=== PATIENT | female | born 1945 | race Caucasian/White ===

== ENCOUNTER 2018-03-03 10:24 | Inpatient (IN) | payer OTHER ==
[2018-03-03 11:54] LABS: ADD MAN DIFF? NO
[2018-03-03 11:59] LABS: WHITE BLOOD COUNT 5.3 10^3/ul (4.8-10.8)
[2018-03-03 11:59] LABS: BASOPHILS % 0.8 % (0.0-2.0); EOSINOPHILS # 0.3 10^3/ul (0.0-0.5); EOSINOPHILS % 5.1 % (0.0-7.0); HEMATOCRIT 33.7 % (37.0-47.0); HEMOGLOBIN 11.1 g/dl (12.0-16.0); LYMPHOCYTES # 1.5 10^3/ul (0.8-2.9); LYMPHOCYTES % 27.6 % (15.0-51.0); MEAN CORPUSCULAR HEMOGLOBIN 30.1 pg (29.0-33.0); MEAN CORPUSCULAR HGB CONC 32.9 g/dl (32.0-37.0); MEAN CORPUSCULAR VOLUME 91.3 fl (82.0-101.0); MEAN PLATELET VOLUME 10.5 fl (7.4-10.4); MONOCYTE # 0.3 10^3/ul (0.3-0.9); MONOCYTES % 6.1 % (0.0-11.0); NEUTROPHIL # 3.2 10^3/ul (1.6-7.5); NEUTROPHILS % 60.2 % (39.0-77.0); PLATELET COUNT 241 10^3/UL (140-415); RED BLOOD COUNT 3.69 10^6/ul (4.20-5.40); RED CELL DISTRIBUTION WIDTH 12.2 % (11.5-14.5)
[2018-03-03 12:19] LABS: INR 0.95; PROTIME 12.8 Sec (11.9-14.9)
[2018-03-03 12:20] LABS: ALANINE AMINOTRANSFERASE 30 IU/L (13-69); ALBUMIN 4.1 g/dl (3.3-4.9); ALBUMIN/GLOBULIN RATIO 1.46; ALKALINE PHOSPHATASE 101 IU/L (42-121); ANION GAP 13 (8-16); ASPARTATE AMINO TRANSFERASE 35 IU/L (15-46); BILIRUBIN,INDIRECT 0.2 mg/dl (0-1.1); BILIRUBIN,TOTAL 0.2 mg/dl (0.2-1.3); BLOOD UREA NITROGEN 26 mg/dl (7-20); CALCIUM 9.9 mg/dl (8.4-10.2); CARBON DIOXIDE 24 mmol/L (21-31); CHLORIDE 110 mmol/L (97-110); GLUCOSE 109 mg/dl (70-220); PARTIAL THROMBOPLASTIN TIME 26.4 Sec (25.0-35.0); POTASSIUM 4.7 mmol/L (3.5-5.1); SODIUM 142 mmol/L (135-144); TOTAL PROTEIN 6.9 g/dl (6.1-8.1)
[2018-03-03] MEDS ORDERED: IODIXANOL LOCM 100 ML BTL (12:40)
[2018-03-03] MEDS ORDERED: LIDOCAINE 1% (MDV) 20 ML INJ (12:40)
[2018-03-03] MEDS ORDERED: NITROGLYCERIN (IC) 100 MCG/ML INJ (12:47)
[2018-03-03] MEDS ORDERED: HEPARIN 1000 UNITS/ML 10 ML INJ (12:47)
[2018-03-03] MEDS ORDERED: VERAPAMIL 5 MG INJ (12:47)
[2018-03-03] MEDS ORDERED: FENTAnyl 50 MCG/ML VIAL (12:50)
[2018-03-03] MEDS ORDERED: MIDAZOLAM 1 MG/ML 2 ML INJ (12:50)
[2018-03-03] MEDS: SOD CHLORIDE 0.9% 1,000 ML IV (13:47)
[2018-03-03] MEDS ORDERED: ONDANSETRON 4 MG INJ IV (14:00)
[2018-03-03] MEDS ORDERED: AL HYDROX/MG HYDROX/SIMETH 30 ML CUP PO (14:00)
[2018-03-03] MEDS: hydrALAzine 20 MG INJ IV ×2 (16:05→17:41)
[2018-03-03] MEDS ORDERED: ALPRAZOLAM 0.25 MG TAB PO (17:00)
[2018-03-03] MEDS ORDERED: hydrALAzine 20 MG INJ (17:05)
[2018-03-03] MEDS: AMLODIPINE 2.5 MG TAB PO ×2 (17:41→21:03)
[2018-03-03] MEDS ORDERED: GLUCOSE GEL 15 GRAM TUBE PO ×2 (18:00)
[2018-03-03] MEDS ORDERED: GLUCAGON 1 MG INJ IM (18:00)
[2018-03-03] MEDS ORDERED: DEXTROSE 50% 50 ML SYRINGE IV ×2 (18:00)
[2018-03-03] MEDS ORDERED: GLUCOSE GEL 15 GRAM TUBE BUCCAL (18:00)
[2018-03-03] MEDS: ATORVASTATIN 40 MG TAB PO (20:52)
[2018-03-03] MEDS: INSULIN ASPART [NOVOLOG] 3 ML PEN SC (21:02)
[2018-03-03] MEDS: METOPROLOL 25 MG TAB PO (21:04)
[2018-03-04] MEDS: ACCU-CHEK XX ×9 (02:49→23:08)
[2018-03-04] MEDS ORDERED: NITROGLYCERIN 50 MG/D5W 250 ML BTL (07:00)
[2018-03-04] MEDS ORDERED: AMINOCAPROIC ACID 5 GM INJ (07:00)
[2018-03-04] MEDS ORDERED: DOPamine-D5W 1.6 MG/ML 250 ML (07:00)
[2018-03-04] MEDS ORDERED: ALBUMIN HUMAN 25% 100 ML INJ (07:00)
[2018-03-04] MEDS ORDERED: NA BICARBONATE 8.4% 50 ML SYG ×2 (07:00→12:53)
[2018-03-04] MEDS ORDERED: LIDOCAINE 100 MG SYRINGE (07:00)
[2018-03-04] MEDS ORDERED: TRANEXAMIC ACID 1,000 MG/10 ML VIAL (07:00)
[2018-03-04 07:31] LABS: ADD MAN DIFF? NO
[2018-03-04 07:43] LABS: BASOPHIL # 0.1 10^3/ul (0.0-0.1); EOSINOPHILS # 0.4 10^3/ul (0.0-0.5); EOSINOPHILS % 5.6 % (0.0-7.0); HEMATOCRIT 37.4 % (37.0-47.0); HEMOGLOBIN 12.4 g/dl (12.0-16.0); LYMPHOCYTES # 1.6 10^3/ul (0.8-2.9); LYMPHOCYTES % 22.5 % (15.0-51.0); MEAN CORPUSCULAR HEMOGLOBIN 29.8 pg (29.0-33.0); MEAN CORPUSCULAR HGB CONC 33.2 g/dl (32.0-37.0); MEAN CORPUSCULAR VOLUME 89.9 fl (82.0-101.0); MEAN PLATELET VOLUME 10.5 fl (7.4-10.4); MONOCYTE # 0.4 10^3/ul (0.3-0.9); MONOCYTES % 5.4 % (0.0-11.0); NEUTROPHIL # 4.6 10^3/ul (1.6-7.5); NEUTROPHILS % 65.4 % (39.0-77.0); PLATELET COUNT 263 10^3/UL (140-415); RED BLOOD COUNT 4.16 10^6/ul (4.20-5.40); RED CELL DISTRIBUTION WIDTH 12.4 % (11.5-14.5)
[2018-03-04] MEDS ORDERED: MIDAZOLAM 5 ML ×2 (07:55)
[2018-03-04] MEDS ORDERED: ONDANSETRON 4 MG INJ IV (08:00)
[2018-03-04] MEDS ORDERED: MIDAZOLAM 1 MG/ML 2 ML INJ IV (08:00)
[2018-03-04] MEDS ORDERED: HYDROmorphONE 1 MG/5 ML IV SYRINGE IV ×3 (08:00)
[2018-03-04] MEDS ORDERED: MEPERIDINE 25 MG INJ IV (08:00)
[2018-03-04] MEDS ORDERED: hydrALAzine 20 MG INJ IV (08:00)
[2018-03-04] MEDS ORDERED: DIPHENHYDRAMINE 50 MG INJ IV (08:00)
[2018-03-04] MEDS ORDERED: LEVALBUTEROL (NEB) 1.25 MG/0.5 ML AMP HHN (08:00)
[2018-03-04] MEDS ORDERED: FENTAnyl 50 MCG/ML VIAL IV ×2 (08:00)
[2018-03-04] MEDS ORDERED: LORAZEPAM 2 MG INJ IV (08:00)
[2018-03-04] MEDS ORDERED: IPRATROPIUM (NEB) 0.5 MG/2.5 ML AMP HHN (08:00)
[2018-03-04] MEDS ORDERED: LABETALOL HCL 20MG INJ IV (08:00)
[2018-03-04 08:02] LABS: MAGNESIUM 1.7 mg/dl (1.7-2.5)
[2018-03-04 08:05] LABS: ANION GAP 13 (8-16); BLOOD UREA NITROGEN 20 mg/dl (7-20); CALCIUM 9.8 mg/dl (8.4-10.2); CARBON DIOXIDE 24 mmol/L (21-31); CHLORIDE 109 mmol/L (97-110); CREATININE 0.84 mg/dl (0.44-1.00); GLUCOSE 171 mg/dl (70-220); POTASSIUM 4.9 mmol/L (3.5-5.1); SODIUM 141 mmol/L (135-144)
[2018-03-04] MEDS: PAPAVERINE 60 MG INJ (08:55)
[2018-03-04] MEDS: HEPARIN 1000 UNITS/ML 10 ML INJ (08:55)
[2018-03-04] MEDS: VANCOMYCIN 1 GM INJ (08:55)
[2018-03-04] MEDS ORDERED: morphine 10 MG INJ (08:58)
[2018-03-04] MEDS: METOPROLOL 25 MG TAB PO ×2 (09:00→21:00)
[2018-03-04] MEDS: AMLODIPINE 2.5 MG TAB PO ×2 (09:00→21:00)
[2018-03-04] MEDS: ASPIRIN 81 MG TAB PO (09:00)
[2018-03-04] MEDS ORDERED: HEPARIN 1000 UNITS/ML 10 ML INJ ×3 (09:07→09:34)
[2018-03-04] MEDS ORDERED: PROTAMINE 250 MG INJ (09:32)
[2018-03-04] MEDS ORDERED: PROPOFOL 100 ML (09:48)
[2018-03-04] MEDS ORDERED: PROPOFOL 20 ML (09:48)
[2018-03-04] MEDS ORDERED: SUCCINYLCHOLINE CHLORIDE 100 MG/5 ML SYG IV (09:49)
[2018-03-04] MEDS ORDERED: LIDOCAINE 2% (SDV) 5 ML INJ (09:49)
[2018-03-04] MEDS ORDERED: ROCURONIUM 50 MG INJ (09:49)
[2018-03-04 10:10] LABS: IMMEDIATE SPIN CROSSMATCH 1 6
[2018-03-04] MEDS ORDERED: CA CHLORIDE 10% 10 ML SYRINGE (12:27)
[2018-03-04] MEDS: niCARdipine-NS 0.1MG/ML DRIP 200 ML IV (13:33)
[2018-03-04] MEDS: MILRINONE LACTATE 2 MG in SOD CHLORIDE 0.9% 50 ML IV (13:34)
[2018-03-04] MEDS: INSULIN HUMAN REGULAR 100 UNIT in SOD CHLORIDE 0.9% 99 ML IVPB (13:37)
[2018-03-04] MEDS: NORepinephrine 8MG/250 ML (PMX 250 ML IV (14:00)
[2018-03-04] MEDS: PHENYLephrine 20MG IN 250 ML 250 ML IV (14:00)
[2018-03-04] MEDS: HEPARIN (10000 UNITS/ML) 10,000 UNIT, MILRINONE LACTATE 10 MG in SOD CHLORIDE 0.9% 1,00... SC (14:00)
[2018-03-04 14:03] LABS: ADD MAN DIFF? NO
[2018-03-04 14:05] LABS: WHITE BLOOD COUNT 10.1 10^3/ul (4.8-10.8)
[2018-03-04 14:05] LABS: BASOPHILS % 0.3 % (0.0-2.0); EOSINOPHILS # 0.1 10^3/ul (0.0-0.5); EOSINOPHILS % 0.7 % (0.0-7.0); HEMATOCRIT 31.4 % (37.0-47.0); HEMOGLOBIN 10.8 g/dl (12.0-16.0); LYMPHOCYTES # 0.7 10^3/ul (0.8-2.9); LYMPHOCYTES % 6.6 % (15.0-51.0); MEAN CORPUSCULAR HEMOGLOBIN 30.3 pg (29.0-33.0); MEAN CORPUSCULAR HGB CONC 34.4 g/dl (32.0-37.0); MEAN PLATELET VOLUME 10.3 fl (7.4-10.4); MONOCYTE # 0.7 10^3/ul (0.3-0.9); MONOCYTES % 7.2 % (0.0-11.0); NEUTROPHIL # 8.5 10^3/ul (1.6-7.5); NEUTROPHILS % 84.6 % (39.0-77.0); PLATELET COUNT 123 10^3/UL (140-415); RED BLOOD COUNT 3.57 10^6/ul (4.20-5.40); RED CELL DISTRIBUTION WIDTH 12.8 % (11.5-14.5)
[2018-03-04 14:21] LABS: MODE VENT - AC; MetHgb Mixed Venous 0.4 %; Mixed Venous COHb 0.1 %; Mixed Venous Fraction OxyHgb 81.3 %; Mixed Venous Oxygen Sat 81.7 mmHG (65.0-75.0); Mixed Venous Total Hemglobin 11.8 g/dl; Sample Type BLMV; Site OTHER
[2018-03-04 14:22] LABS: AADO2 Arterial 377.6 mmHg (7.0-24.0); ANION GAP 15 (8-16); Arterial Base Excess -1.7 mmol/L (-3.0-3); Arterial Blood Gas Oxygen Sat 98.1 mmHG (95.0-100.0); Arterial COHb 0.3 % (0.0-3.0); Arterial Fraction of Oxyhgb 97.5 % (93.0-99.0); Arterial HCO3 23.5 mmol/L (22.0-26.0); Arterial MetHb 0.3 % (0.0-1.5); Arterial Total Hemglobin 11.5 g/dl (12.0-18.0); Arterial pCO2 41.4 mmhg (35-45); BLOOD UREA NITROGEN 15 mg/dl (7-20); CALCIUM 10.6 mg/dl (8.4-10.2); CARBON DIOXIDE 26 mmol/L (21-31); CHLORIDE 112 mmol/L (97-110); CREATININE 0.85 mg/dl (0.44-1.00); GLUCOSE 135 mg/dl (70-220); MAGNESIUM 3.6 mg/dl (1.7-2.5); MODE VENT - AC; POTASSIUM 3.6 mmol/L (3.5-5.1); SODIUM 149 mmol/L (135-144); Site A-Line
[2018-03-04] MEDS: EPINEPHrine 4 MG in DEXTROSE 5% 246 ML IV (14:22)
[2018-03-04 14:27] LABS: INR 1.36; PARTIAL THROMBOPLASTIN TIME 27.2 Sec (25.0-35.0); PT RATIO 1.3
[2018-03-04] MEDS ORDERED: niCARdipine 25 MG in SOD CHLORIDE 0.9% 250 ML IV (14:30)
[2018-03-04] MEDS ORDERED: DOPamine-D5W 1.6 MG/ML 250 ML IV (15:00)
[2018-03-04] MEDS ORDERED: DEXTROSE 50% 50 ML SYRINGE IV ×2 (15:00)
[2018-03-04] MEDS ORDERED: NITROGLYCERIN 50 MG/D5W (PMX) 250 ML IV (15:00)
[2018-03-04] MEDS: PROPOFOL 100 ML IV (15:00)
[2018-03-04] MEDS ORDERED: MILRINONE LACTATE 100 ML IV ×2 (15:00→15:30)
[2018-03-04] MEDS ORDERED: POTASSIUM CHLORIDE 100 ML (15:07)
[2018-03-04] MEDS: POTASSIUM CHLORIDE 50 ML IVPB ×2 (15:36→16:19)
[2018-03-04] MEDS ORDERED: INSULIN HUMAN REGULAR 100 UNIT in SOD CHLORIDE 0.9% 99 ML IV (16:00)
[2018-03-04] MEDS: ASPIRIN 600 MG SUPP PR (16:21)
[2018-03-04] MEDS ORDERED: HYDROCODONE/APAP (5/325) TAB PO (16:30)
[2018-03-04] MEDS: HYDROmorphONE 0.5 MG/0.5 ML SYG IV ×2 (16:50→17:19)
[2018-03-04 19:09] LABS: ADD MAN DIFF? NO
[2018-03-04 19:11] LABS: ABNORMAL IP MESSAGE 1; BASOPHILS % 0.2 % (0.0-2.0); EOSINOPHILS % 0.1 % (0.0-7.0); HEMATOCRIT 32.9 % (37.0-47.0); HEMOGLOBIN 10.6 g/dl (12.0-16.0); LYMPHOCYTES # 0.4 10^3/ul (0.8-2.9); LYMPHOCYTES % 4.7 % (15.0-51.0); MEAN CORPUSCULAR HEMOGLOBIN 29.9 pg (29.0-33.0); MEAN CORPUSCULAR HGB CONC 32.2 g/dl (32.0-37.0); MEAN CORPUSCULAR VOLUME 92.7 fl (82.0-101.0); MEAN PLATELET VOLUME 10.3 fl (7.4-10.4); MONOCYTE # 0.6 10^3/ul (0.3-0.9); MONOCYTES % 6.5 % (0.0-11.0); NEUTROPHIL # 7.9 10^3/ul (1.6-7.5); NEUTROPHILS % 88.2 % (39.0-77.0); PLATELET COUNT 126 10^3/UL (140-415); RED BLOOD COUNT 3.55 10^6/ul (4.20-5.40); RED CELL DISTRIBUTION WIDTH 13.4 % (11.5-14.5)
[2018-03-04 19:29] LABS: POSITIVE DIFF @See below
[2018-03-04 19:32] LABS: INR 1.32; PROTIME 16.6 Sec (11.9-14.9); PT RATIO 1.3
[2018-03-04 19:33] LABS: PARTIAL THROMBOPLASTIN TIME 34.3 Sec (25.0-35.0)
[2018-03-04 20:37] LABS: ANION GAP 13 (8-16); BLOOD UREA NITROGEN 17 mg/dl (7-20); CALCIUM 9.8 mg/dl (8.4-10.2); CARBON DIOXIDE 26 mmol/L (21-31); CHLORIDE 113 mmol/L (97-110); CREATININE 0.99 mg/dl (0.44-1.00); GLUCOSE 168 mg/dl (70-220); MAGNESIUM 2.7 mg/dl (1.7-2.5); POTASSIUM 4.2 mmol/L (3.5-5.1); SODIUM 148 mmol/L (135-144)
[2018-03-04] MEDS: ATORVASTATIN 40 MG TAB PO (21:00)
[2018-03-04 22:00] LABS: AADO2 Arterial 145.3 mmHg (7.0-24.0); Arterial Base Excess -0.5 mmol/L (-3.0-3); Arterial Blood Gas Oxygen Sat 96.4 mmHG (95.0-100.0); Arterial COHb 0.3 % (0.0-3.0); Arterial Fraction of Oxyhgb 95.9 % (93.0-99.0); Arterial HCO3 24.1 mmol/L (22.0-26.0); Arterial MetHb 0.2 % (0.0-1.5); Arterial Total Hemglobin 11.4 g/dl (12.0-18.0); Arterial pCO2 39.5 mmhg (35-45); Blood Gas PS 10; MODE VENT - CPAP; Site A-Line
[2018-03-04] MEDS: morphine 2 MG INJ IV (23:06)
[2018-03-04] MEDS: NITROGLYCERIN 50 MG/D5W (PMX) 250 ML IV (23:07)
[2018-03-05] MEDS: ACCU-CHEK XX ×20 (00:12→19:14)
[2018-03-05] MEDS: morphine 2 MG INJ IV ×3 (02:20→22:20)
[2018-03-05] MEDS: PROPOFOL 100 ML IV ×2 (02:36→14:26)
[2018-03-05] MEDS: NITROGLYCERIN 50 MG/D5W (PMX) 250 ML IV (04:44)
[2018-03-05 05:35] LABS: ADD MAN DIFF? NO
[2018-03-05 05:41] LABS: ABNORMAL IP MESSAGE 1; BASOPHILS % 0.1 % (0.0-2.0); HEMATOCRIT 31.3 % (37.0-47.0); HEMOGLOBIN 10.3 g/dl (12.0-16.0); LYMPHOCYTES # 0.6 10^3/ul (0.8-2.9); LYMPHOCYTES % 6.4 % (15.0-51.0); MEAN CORPUSCULAR HEMOGLOBIN 29.5 pg (29.0-33.0); MEAN CORPUSCULAR HGB CONC 32.9 g/dl (32.0-37.0); MEAN CORPUSCULAR VOLUME 89.7 fl (82.0-101.0); MONOCYTE # 0.6 10^3/ul (0.3-0.9); NEUTROPHIL # 7.8 10^3/ul (1.6-7.5); NEUTROPHILS % 86.2 % (39.0-77.0); PLATELET COUNT 116 10^3/UL (140-415); RED BLOOD COUNT 3.49 10^6/ul (4.20-5.40); RED CELL DISTRIBUTION WIDTH 13.6 % (11.5-14.5)
[2018-03-05 05:41] LABS: WHITE BLOOD COUNT 9.1 10^3/ul (4.8-10.8)
[2018-03-05 06:00] LABS: POSITIVE DIFF @See below
[2018-03-05 06:25] LABS: ANION GAP 11 (8-16); BLOOD UREA NITROGEN 17 mg/dl (7-20); CARBON DIOXIDE 27 mmol/L (21-31); CHLORIDE 117 mmol/L (97-110); CREATININE 0.92 mg/dl (0.44-1.00); GLUCOSE 128 mg/dl (70-220); MAGNESIUM 2.2 mg/dl (1.7-2.5); POTASSIUM 3.7 mmol/L (3.5-5.1); SODIUM 151 mmol/L (135-144)
[2018-03-05 07:46] LABS: AADO2 Arterial 92.6 mmHg (7.0-24.0); Arterial Base Excess 0.9 mmol/L (-3.0-3); Arterial Blood Gas Oxygen Sat 89.7 mmHG (95.0-100.0); Arterial COHb 0.3 % (0.0-3.0); Arterial Fraction of Oxyhgb 89.3 % (93.0-99.0); Arterial HCO3 24.5 mmol/L (22.0-26.0); Arterial MetHb 0.2 % (0.0-1.5); Arterial Total Hemglobin 10.8 g/dl (12.0-18.0); Arterial pCO2 35.7 mmhg (35-45); MODE NASAL CANNULA; Site A-Line
[2018-03-05] MEDS: ASPIRIN 81 MG TAB PO (08:19)
[2018-03-05] MEDS: AMLODIPINE 2.5 MG TAB PO (08:20)
[2018-03-05] MEDS: FUROSEMIDE 20 MG INJ IV (08:21)
[2018-03-05] MEDS ORDERED: GLUCAGON 1 MG INJ IM (09:00)
[2018-03-05] MEDS ORDERED: GLUCOSE GEL 15 GRAM TUBE BUCCAL (09:00)
[2018-03-05] MEDS ORDERED: GLUCOSE GEL 15 GRAM TUBE PO ×2 (09:00)
[2018-03-05] MEDS ORDERED: DEXTROSE 50% 50 ML SYRINGE IV ×2 (09:00)
[2018-03-05] MEDS: METOPROLOL 25 MG TAB PO ×2 (09:11→20:13)
[2018-03-05] MEDS: ENOXAPARIN 40 MG/0.4 ML SYG SC (09:14)
[2018-03-05] MEDS: HYDROCODONE/APAP (5/325) TAB PO (10:34)
[2018-03-05] MEDS: LOSARTAN 25 MG TAB PO (11:00)
[2018-03-05] MEDS: INSULIN ASPART [NOVOLOG] 3 ML PEN SC ×3 (11:37→20:26)
[2018-03-05 13:06] LABS: ADD MAN DIFF? NO
[2018-03-05 13:08] LABS: WHITE BLOOD COUNT 10.7 10^3/ul (4.8-10.8)
[2018-03-05 13:08] LABS: BASOPHILS % 0.2 % (0.0-2.0); EOSINOPHILS % 0.1 % (0.0-7.0); HEMATOCRIT 29.9 % (37.0-47.0); HEMOGLOBIN 9.7 g/dl (12.0-16.0); LYMPHOCYTES # 0.7 10^3/ul (0.8-2.9); LYMPHOCYTES % 6.8 % (15.0-51.0); MEAN CORPUSCULAR HEMOGLOBIN 30.1 pg (29.0-33.0); MEAN CORPUSCULAR HGB CONC 32.4 g/dl (32.0-37.0); MEAN CORPUSCULAR VOLUME 92.9 fl (82.0-101.0); MEAN PLATELET VOLUME 10.6 fl (7.4-10.4); MONOCYTE # 0.7 10^3/ul (0.3-0.9); MONOCYTES % 6.9 % (0.0-11.0); NEUTROPHIL # 9.1 10^3/ul (1.6-7.5); NEUTROPHILS % 85.7 % (39.0-77.0); PLATELET COUNT 112 10^3/UL (140-415); RED BLOOD COUNT 3.22 10^6/ul (4.20-5.40); RED CELL DISTRIBUTION WIDTH 13.9 % (11.5-14.5)
[2018-03-05 13:26] LABS: ANION GAP 17 (8-16); BLOOD UREA NITROGEN 20 mg/dl (7-20); CALCIUM 8.4 mg/dl (8.4-10.2); CARBON DIOXIDE 23 mmol/L (21-31); CHLORIDE 107 mmol/L (97-110); GLUCOSE 312 mg/dl (70-220); POTASSIUM 4.5 mmol/L (3.5-5.1); SODIUM 142 mmol/L (135-144)
[2018-03-05] MEDS: ATORVASTATIN 40 MG TAB PO (20:12)
[2018-03-05] MEDS: ACETAMINOPHEN 325 MG TAB PO (20:14)
[2018-03-06] MEDS: ACCU-CHEK XX ×3 (02:03→21:00)
[2018-03-06] MEDS: morphine 2 MG INJ IV ×4 (02:06→17:42)
[2018-03-06] MEDS: PROPOFOL 100 ML IV ×2 (03:00→14:10)
[2018-03-06] MEDS: hydrALAzine 20 MG INJ IV (03:08)
[2018-03-06 05:00] LABS: ADD MAN DIFF? NO
[2018-03-06 05:02] LABS: BASOPHILS % 0.3 % (0.0-2.0); EOSINOPHILS # 0.1 10^3/ul (0.0-0.5); EOSINOPHILS % 1.1 % (0.0-7.0); HEMATOCRIT 30.2 % (37.0-47.0); LYMPHOCYTES # 1.4 10^3/ul (0.8-2.9); LYMPHOCYTES % 13.2 % (15.0-51.0); MEAN CORPUSCULAR HEMOGLOBIN 29.9 pg (29.0-33.0); MEAN CORPUSCULAR HGB CONC 33.1 g/dl (32.0-37.0); MEAN CORPUSCULAR VOLUME 90.1 fl (82.0-101.0); MEAN PLATELET VOLUME 11.5 fl (7.4-10.4); MONOCYTE # 0.7 10^3/ul (0.3-0.9); MONOCYTES % 6.3 % (0.0-11.0); NEUTROPHIL # 8.3 10^3/ul (1.6-7.5); NEUTROPHILS % 78.7 % (39.0-77.0); PLATELET COUNT 102 10^3/UL (140-415); RED BLOOD COUNT 3.35 10^6/ul (4.20-5.40); RED CELL DISTRIBUTION WIDTH 13.4 % (11.5-14.5)
[2018-03-06 05:02] LABS: WHITE BLOOD COUNT 10.5 10^3/ul (4.8-10.8)
[2018-03-06 05:24] LABS: ALANINE AMINOTRANSFERASE 30 IU/L (13-69); ALBUMIN 3.6 g/dl (3.3-4.9); ALKALINE PHOSPHATASE 34 IU/L (42-121); ANION GAP 13 (8-16); ASPARTATE AMINO TRANSFERASE 42 IU/L (15-46); BILIRUBIN,INDIRECT 0.4 mg/dl (0-1.1); BILIRUBIN,TOTAL 0.4 mg/dl (0.2-1.3); BLOOD UREA NITROGEN 19 mg/dl (7-20); CALCIUM 8.7 mg/dl (8.4-10.2); CARBON DIOXIDE 22 mmol/L (21-31); CHLORIDE 108 mmol/L (97-110); CREATININE 0.84 mg/dl (0.44-1.00); GLUCOSE 150 mg/dl (70-220); MAGNESIUM 2.1 mg/dl (1.7-2.5); POTASSIUM 3.5 mmol/L (3.5-5.1); SODIUM 139 mmol/L (135-144)
[2018-03-06 05:31] LABS: B-TYPE NATRIURETIC PEPTIDE 3450 PG/ML (0-125)
[2018-03-06] MEDS: INSULIN ASPART [NOVOLOG] 3 ML PEN SC ×4 (07:52→22:09)
[2018-03-06] MEDS: LOSARTAN 25 MG TAB PO (08:00)
[2018-03-06] MEDS: ASPIRIN 81 MG TAB PO (08:00)
[2018-03-06] MEDS: METOPROLOL 25 MG TAB PO ×2 (08:01→22:15)
[2018-03-06] MEDS: ENOXAPARIN 40 MG/0.4 ML SYG SC (08:02)
[2018-03-06] MEDS ORDERED: LINAGLIPTIN 5 MG TABLET PO (11:00)
[2018-03-06] MEDS: POTASSIUM CHLORIDE (SR) 10 MEQ TAB PO (12:11)
[2018-03-06] MEDS: LINAGLIPTIN 5 MG TABLET PO (12:13)
[2018-03-06] MEDS: FUROSEMIDE 20 MG INJ IV (12:14)
[2018-03-06] MEDS: HYDROCODONE/APAP (5/325) TAB PO (19:48)
[2018-03-06] MEDS: ATORVASTATIN 40 MG TAB PO (22:15)
[2018-03-07] MEDS: ACCU-CHEK XX ×5 (02:59→21:00)
[2018-03-07 06:19] LABS: ADD MAN DIFF? NO
[2018-03-07 06:26] LABS: BASOPHILS % 0.2 % (0.0-2.0); EOSINOPHILS # 0.4 10^3/ul (0.0-0.5); EOSINOPHILS % 3.7 % (0.0-7.0); HEMATOCRIT 29.8 % (37.0-47.0); HEMOGLOBIN 9.6 g/dl (12.0-16.0); MEAN CORPUSCULAR HEMOGLOBIN 29.4 pg (29.0-33.0); MEAN CORPUSCULAR HGB CONC 32.2 g/dl (32.0-37.0); MEAN CORPUSCULAR VOLUME 91.4 fl (82.0-101.0); MEAN PLATELET VOLUME 11.1 fl (7.4-10.4); MONOCYTE # 0.6 10^3/ul (0.3-0.9); MONOCYTES % 6.3 % (0.0-11.0); NEUTROPHIL # 7.8 10^3/ul (1.6-7.5); NEUTROPHILS % 79.2 % (39.0-77.0); PLATELET COUNT 122 10^3/UL (140-415); RED BLOOD COUNT 3.26 10^6/ul (4.20-5.40); RED CELL DISTRIBUTION WIDTH 12.7 % (11.5-14.5)
[2018-03-07 06:26] LABS: WHITE BLOOD COUNT 9.8 10^3/ul (4.8-10.8)
[2018-03-07 06:50] LABS: ANION GAP 13 (8-16); BLOOD UREA NITROGEN 29 mg/dl (7-20); CALCIUM 8.4 mg/dl (8.4-10.2); CARBON DIOXIDE 24 mmol/L (21-31); CHLORIDE 104 mmol/L (97-110); CREATININE 1.04 mg/dl (0.44-1.00); GLUCOSE 233 mg/dl (70-220); POTASSIUM 4.4 mmol/L (3.5-5.1); SODIUM 137 mmol/L (135-144)
[2018-03-07 07:05] LABS: ALANINE AMINOTRANSFERASE 22 IU/L (13-69); ALBUMIN 3.3 g/dl (3.3-4.9); ALBUMIN/GLOBULIN RATIO 1.26; ALKALINE PHOSPHATASE 46 IU/L (42-121); ANION GAP 12 (8-16); ASPARTATE AMINO TRANSFERASE 23 IU/L (15-46); BILIRUBIN,INDIRECT 0.4 mg/dl (0-1.1); BILIRUBIN,TOTAL 0.4 mg/dl (0.2-1.3); BLOOD UREA NITROGEN 30 mg/dl (7-20); CALCIUM 8.6 mg/dl (8.4-10.2); CARBON DIOXIDE 25 mmol/L (21-31); CHLORIDE 105 mmol/L (97-110); CREATININE 1.13 mg/dl (0.44-1.00); GLUCOSE 237 mg/dl (70-220); MAGNESIUM 2.3 mg/dl (1.7-2.5); POTASSIUM 4.6 mmol/L (3.5-5.1); SODIUM 137 mmol/L (135-144); TOTAL PROTEIN 5.9 g/dl (6.1-8.1)
[2018-03-07 07:15] LABS: B-TYPE NATRIURETIC PEPTIDE 4120 PG/ML (0-125)
[2018-03-07] MEDS: INSULIN ASPART [NOVOLOG] 3 ML PEN SC ×6 (08:34→21:55)
[2018-03-07] MEDS: ASPIRIN 81 MG TAB PO (08:35)
[2018-03-07] MEDS: ASPIRIN (EC) 81 MG TAB PO (08:36)
[2018-03-07] MEDS: METOPROLOL 25 MG TAB PO ×2 (08:37→21:45)
[2018-03-07] MEDS: LINAGLIPTIN 5 MG TABLET PO (08:38)
[2018-03-07] MEDS: LOSARTAN 25 MG TAB PO (08:39)
[2018-03-07] MEDS: morphine 2 MG INJ IV (08:43)
[2018-03-07] MEDS: ENOXAPARIN 40 MG/0.4 ML SYG SC (09:43)
[2018-03-07] MEDS: ATORVASTATIN 40 MG TAB PO (21:46)
[2018-03-08] MEDS: ACCU-CHEK XX (02:58)
[2018-03-08] MEDS: INSULIN ASPART [NOVOLOG] 3 ML PEN SC ×7 (07:42→21:12)
[2018-03-08] MEDS: morphine 2 MG INJ IV (07:47)
[2018-03-08] MEDS: ASPIRIN 81 MG TAB PO (09:07)
[2018-03-08] MEDS: LINAGLIPTIN 5 MG TABLET PO (09:07)
[2018-03-08] MEDS: LOSARTAN 25 MG TAB PO (09:07)
[2018-03-08] MEDS: METOPROLOL 25 MG TAB PO ×2 (09:08→21:02)
[2018-03-08] MEDS: ENOXAPARIN 40 MG/0.4 ML SYG SC (09:11)
[2018-03-08] MEDS: ATORVASTATIN 40 MG TAB PO (21:02)
[2018-03-09] MEDS: ACCU-CHEK XX (03:07)
[2018-03-09] MEDS: INSULIN ASPART [NOVOLOG] 3 ML PEN SC ×7 (07:34→21:23)
[2018-03-09] MEDS: LINAGLIPTIN 5 MG TABLET PO (08:10)
[2018-03-09] MEDS: ASPIRIN 81 MG TAB PO (08:10)
[2018-03-09] MEDS: LOSARTAN 25 MG TAB PO (08:11)
[2018-03-09] MEDS: METOPROLOL 25 MG TAB PO ×2 (08:11→21:15)
[2018-03-09] MEDS: ENOXAPARIN 40 MG/0.4 ML SYG SC (08:14)
[2018-03-09 14:10] LABS: HEMOGLOBIN A1C 9.1 % (0-5.9)
[2018-03-09] MEDS: INSULIN GLARGINE [LANTus] (100 UNITS/ML) SYG SC (16:34)
[2018-03-09] MEDS ORDERED: INSULIN ASPART [NOVOLOG] 3 ML PEN SC (18:00)
[2018-03-09] MEDS ORDERED: morphine LIQ (10 MG/5 ML) CUP PO (19:00)
[2018-03-09] MEDS ORDERED: INSULIN GLARGINE [LANTus] (100 UNITS/ML) SYG SC (20:00)
[2018-03-09] MEDS: ATORVASTATIN 40 MG TAB PO (21:14)
[2018-03-09] MEDS: HYDROCODONE/APAP (5/325) TAB PO (21:25)
[2018-03-10] MEDS: ACCU-CHEK XX (02:54)
[2018-03-10] MEDS: METOPROLOL 25 MG TAB PO (07:41)
[2018-03-10] MEDS: ASPIRIN 81 MG TAB PO (07:41)
[2018-03-10] MEDS: LOSARTAN 25 MG TAB PO (07:42)
[2018-03-10] MEDS: LINAGLIPTIN 5 MG TABLET PO (07:42)
[2018-03-10] MEDS: INSULIN ASPART [NOVOLOG] 3 ML PEN SC ×4 (07:49→11:41)
[2018-03-10] MEDS: ENOXAPARIN 40 MG/0.4 ML SYG SC (07:49)
[2018-03-10] MEDS ORDERED: INSULIN GLARGINE [LANTus] (100 UNITS/ML) SYG SC (20:00)
== END 2018-03-10 17:10 | disposition home or self-care (01) | DRG 234 ==
LOC: SDS 10:24 → 6WM 03-06 19:56 → SDS 10:24 → REC 03-04 10:46 → TEL 13:59 → ICU 03-04 13:33 → SDS 13:49 → REC 13:49 → TEL 15:59
PROC: 4A023N7 Measurement of Cardiac Sampling and Pressure, Left Heart, Percutaneous Approach (ICD-10-PCS; 2018-03-03 12:30)
PROC: B211YZZ Fluoroscopy of Multiple Coronary Arteries using Other Contrast (ICD-10-PCS; 2018-03-03 12:30)
PROC: B215YZZ Fluoroscopy of Left Heart using Other Contrast (ICD-10-PCS; 2018-03-03 12:30)
PROC: 021109W Bypass Coronary Artery, Two Arteries from Aorta with Autologous Venous Tissue, Open Approach (ICD-10-PCS; principal; 2018-03-03 12:35)
PROC: 02100Z9 Bypass Coronary Artery, One Artery from Left Internal Mammary, Open Approach (ICD-10-PCS; 2018-03-03 12:35)
PROC: 06BQ4ZZ Excision of Left Saphenous Vein, Percutaneous Endoscopic Approach (ICD-10-PCS; 2018-03-03 12:35)
PROC: 06BP4ZZ Excision of Right Saphenous Vein, Percutaneous Endoscopic Approach (ICD-10-PCS; 2018-03-03 12:35)
PROC: 5A1221Z Performance of Cardiac Output, Continuous (ICD-10-PCS; 2018-03-03 12:35)
PROC: 4A033R1 Measurement of Arterial Saturation, Peripheral, Percutaneous Approach (ICD-10-PCS; 2018-03-03 12:35)
PROC: 30233N1 Transfusion of Nonautologous Red Blood Cells into Peripheral Vein, Percutaneous Approach (ICD-10-PCS; 2018-03-03 12:35)
DX: I25.110 Atherosclerotic heart disease of native coronary artery with unstable angina pectoris (principal); N17.9 Acute kidney failure, unspecified; I10 Essential (primary) hypertension; E78.00 Pure hypercholesterolemia, unspecified; E11.9 Type 2 diabetes mellitus without complications; D64.9 Anemia, unspecified; R09.89 Other specified symptoms and signs involving the circulatory and respiratory systems; Z79.84 Long term (current) use of oral hypoglycemic drugs; Z90.49 Acquired absence of other specified parts of digestive tract
CPT/HCPCS: 36430; 36592; 36600; 71045; 80048; 80053; 82803; 82962; 83036; 83735; 83880; 85025; 85610; 85730; 86850; 86900; 86901; 86920; 87081; 93005; 93306; 93312; 93320; 93325; 93458; 93880; 94002; 97110; 97116; 97162; 97530; 99217